=== PATIENT | female | born 1980 | race Hispanic/Latino ===

== ENCOUNTER 2017-02-19 10:10 | Emergency (ER) | payer SELFPAY ==
[2017-02-19 10:40] LABS: Bilirubin Negative (Negative); Blood, Urine Trace (Negative); Glucose, Urine (Dipstick) >=1000 mg/dL (Negative); Ketone, Urine Negative (Negative); Nitrite Negative (Negative); Protein, Urine (Dipstick) Negative (Neg-Trace); Urobilinogen 0.2 mg/dL (0.2-1.0)
[2017-02-19 10:42] LABS: Bacteria/HPF Rare-Few HPF (None Seen); Hyaline Casts/LPF 0-3 HYALINE CAST LPF (0-3 Hyaline); RBC/HPF 0-3 HPF (0-3); Squamous Epithelial 0-3 HPF (0-3); WBC/HPF 0-3 HPF (0-3)
[2017-02-19] MEDS ORDERED: Ondansetron HCl/PF 4 MG/2 ML Vial ONE (11:48)
[2017-02-19 11:58] LABS: #Basophils 0.1 thou/uL (0.0-0.2); #Eosinphils 0.1 thou/uL (0.0-0.7); #Lymphocytes 1.3 thou/uL (1.20-3.40); #Monocytes 0.5 thou/uL (0.11-0.59); #Neutrophils 3.9 thou/uL (1.40-6.50); %Basophils 1.2 % (0.0-1.0); %Eosinophils 1.8 % (0.0-10.0); %Lymphocytes 22.4 % (21.0-51.0); %Monocytes 8.8 % (0.0-10.0); Hematocrit 33.1 % (36.0-47.0); Mean Platelet Volume 7.8 fL (7.4-10.4); Red Blood Cell (RBC) Count 3.92 mill/uL (4.20-5.40); White Blood Cell (WBC) Count 5.9 thou/uL (4.8-10.8)
[2017-02-19] MEDS ORDERED: Ketorolac Tromethamine 30 MG/ML VIAL ONE (12:00)
[2017-02-19] MEDS ORDERED: Methocarbamol 1 GM in Sodium Chloride 0.9% 250 ML 250 ML IVPB SCH (12:15)
[2017-02-19 12:18] LABS: ALT (SGPT) 11 U/L (8-55); AST (SGOT) 12 U/L (5-34); Alkaline Phosphatase 63 U/L (40-150); Anion Gap 12 mmol/L (10-20); BUN (Urea Nitrogen) 13 mg/dL (7.0-18.7); Bilirubin, Total 0.3 mg/dL (0.2-1.2); Calc. Creatinine Clearance 0 mL/min (70-130); Calcium 9.8 mg/dL (7.8-10.44); Carbon Dioxide 25 mmol/L (22-29); Chloride 100 mmol/L (98-107); Estimated GFR-MDRD 69; Globulin 4.4 g/dL (2.4-3.5); Protein, Total 8.4 g/dL (6.0-8.3)
--- NOTE | 2017-02-19 13:27 | CT ---
CT STONE PROTOCOL: Date: 02/19/17 HISTORY: 37-year-old female with right flank pain. FINDINGS: Absence of oral and IV contrast reduces the sensitivity of exam, particularly for evaluation of racquel d organs and bowel. Mild dependent changes are seen in the lung bases. No free air or free fluid is seen in the abdomen or pelvis. No calcified gallstones are noted. A few punctate calculi are noted in the kidneys. No ca lculi seen in the ureters or the urinary bladder. No hydroureteronephrosis is noted. There is fecal material in the colon. There are vascular calcifications without evidence of aneurysmal dilatation o f the abdominal aorta. There are degenerative changes in the spine. IMPRESSION: Nonobstructing punctate renal calculi. POS: VEE
[2017-02-19] MEDS ORDERED: Insulin Regular 300 UNITS/3 ML VIAL ONE (13:40)
== END 2017-02-19 14:45 | disposition home or self-care (01) ==
LOC: ERS 10:10
DX: E11.65 Type 2 diabetes mellitus with hyperglycemia (principal); R10.9 Unspecified abdominal pain; F17.210 Nicotine dependence, cigarettes, uncomplicated
CPT/HCPCS: 36416; 74176; 80053; 81003; 81015; 81025; 85025; 96361; 96365; 96372; 96375; J1815; J1885; J2405; J2800; J7050

== ENCOUNTER 2019-01-10 08:50 | Outpatient (CLI) | payer MEDICAID ==
--- NOTE | 2019-01-10 09:36 | MMO ---
Bilateral MAMMO Bilat Screen [facility]DI. CLINICAL HISTORY: Patient is 38 years old and is seen for screening. The patient has the following family history of breast cancer: mother, at age 58, malignant (generic). The patient has no personal history of cancer. VIEWS: The views performed were: bilateral craniocaudal and bilateral mediolateral oblique. This study has been interpreted with the assistance of computer-aided detection. MAMMOGRAM FINDINGS: There are scattered fibroglandular densities. There are vascular calcifications seen in both breasts. There are no suspicious masses, suspicious calcifications, or new areas of architectural distortion. IMPRESSION: THERE IS NO MAMMOGRAPHIC EVIDENCE OF MALIGNANCY. A ROUTINE FOLLOW-UP MAMMOGRAM IN 1 YEAR IS RECOMMENDED. ACR BI-RADS Category 2 - Benign finding MAMMOGRAPHY NOTE: 1. A negative mammogram report should not delay a biopsy if a dominant of clinically suspicious mass is present. 2. Approximately 10% to 15% of breast cancers are not detected by mammography. 3. Adenosis and dense breasts may obscure an underlying neoplasm. Reported by: KASHMIR HELMS MD Electonically Signed: [id number]
== END 2019-01-10 08:51 | disposition home or self-care (01) ==
LOC: BICMAMMO 08:50
PROVIDERS: ATTEND Family Medicine
DX: Z12.31 Encounter for screening mammogram for malignant neoplasm of breast (principal); Z80.3 Family history of malignant neoplasm of breast
CPT/HCPCS: 77067

== ENCOUNTER 2020-04-01 08:37 | Outpatient (CLI) | payer MEDICAID ==
--- NOTE | 2020-04-01 09:17 | MMO ---
Bilateral MAMMO Bilat Screen [facility]DI. CLINICAL HISTORY: Patient is 40 years old and is seen for screening. The patient has the following family history of breast cancer: mother, at age 58, malignant (generic). The patient has no personal history of cancer. VIEWS: The views performed were: bilateral craniocaudal and bilateral mediolateral oblique. FILMS COMPARED: The present examination has been compared to a prior imaging study performed at [facility] on 01/10/2019. This study has been interpreted with the assistance of computer-aided detection. MAMMOGRAM FINDINGS: There are scattered fibroglandular densities. There are benign appearing calcifications seen in both breasts. There are no suspicious masses, suspicious calcifications, or new areas of architectural distortion. IMPRESSION: THERE IS NO MAMMOGRAPHIC EVIDENCE OF MALIGNANCY. A ROUTINE FOLLOW-UP MAMMOGRAM IN 1 YEAR IS RECOMMENDED. ACR BI-RADS Category 2 - Benign finding MAMMOGRAPHY NOTE: 1. A negative mammogram report should not delay a biopsy if a dominant of clinically suspicious mass is present. 2. Approximately 10% to 15% of breast cancers are not detected by mammography. 3. Adenosis and dense breasts may obscure an underlying neoplasm. Reported by: JORDY MCGOWAN MD Electonically Signed: [id number]
== END 2020-04-01 08:38 | disposition home or self-care (01) ==
LOC: BICMAMMO 08:37
PROVIDERS: ATTEND Family Medicine
DX: Z12.31 Encounter for screening mammogram for malignant neoplasm of breast (principal); Z80.3 Family history of malignant neoplasm of breast
CPT/HCPCS: 77067

== ENCOUNTER 2021-01-13 08:25 | Outpatient (CLI) | payer OTHER ==
[2021-01-13 21:08] LABS: SARS-CoV-2 PCR by NAA Not Detected (NotDetected)
== END 2021-01-13 08:26 | disposition home or self-care (01) ==
LOC: LABBT 08:25
PROVIDERS: ATTEND Ophthalmology Retina Specialist
DX: Z01.812 Encounter for preprocedural laboratory examination (principal); H43.11 Vitreous hemorrhage, right eye; Z20.822 Contact with and (suspected) exposure to COVID-19
CPT/HCPCS: U0003; U0005

== ENCOUNTER 2021-01-16 10:25 | Day surgery (SDC) | payer OTHER ==
[2021-01-15 16:08] VITALS: BMI 27.4
[~2021-01-16 10:25] MED LIST: Cyclopentolate 1% Opth Drop 2 ML BOT FS SCH; EPINEPHrine 0.3 MG, Dextrose 50% 3 ML in Ophthalmic Irrigation Solution 500 ML FS SCH; Fentanyl 100 MCG/2 ML VIAL ONE; Midazolam HCl 2 mg/2 ml Vial ONE; Phenylephrine 2.5% Ophth Soln 5 ML BOT FS SCH
[2021-01-16] MEDS ORDERED: Phenylephrine 2.5% Ophth Soln 5 ML BOT ONE (10:44)
[2021-01-16] MEDS ORDERED: Cyclopentolate 1% Opth Drop 2 ML BOT ONE (10:44)
[2021-01-16] MEDS ORDERED: Maxitrol 0.1% Opth Oint 3.5 GM TUBE ONE (11:12)
[2021-01-16] MEDS ORDERED: Bupivacaine PF 0.75% SDV 10 ML ONE (11:12)
[2021-01-16] MEDS ORDERED: CEFAZOLIN 1 GM VIAL ONE (11:12)
[2021-01-16] MEDS ORDERED: Triamcinolone 40 MG/ML VIAL ONE (11:12)
[2021-01-16] MEDS ORDERED: Lidocaine 4% PF 5 ML AMP ONE (11:12)
[2021-01-16] MEDS ORDERED: Dextrose 50% Abboject 50 ML SYRINGE ONE (11:12)
[2021-01-16] MEDS ORDERED: Lidocaine 1% PF 5 ML VIAL ONE (11:12)
[2021-01-16] MEDS ORDERED: PROPOFOL 200 MG/20 ML VIAL ONE (11:12)
== END 2021-01-16 13:15 | disposition home or self-care (01) ==
LOC: SDC 10:25
PROVIDERS: ATTEND Ophthalmology Retina Specialist
PROC: 08QE3ZZ Repair Right Retina, Percutaneous Approach (ICD-10-PCS; principal; 2021-01-16)
PROC: 08T43ZZ Resection of Right Vitreous, Percutaneous Approach (ICD-10-PCS; principal; 2021-01-16)
DX: H43.11 Vitreous hemorrhage, right eye (principal); E11.9 Type 2 diabetes mellitus without complications; Z79.84 Long term (current) use of oral hypoglycemic drugs; Z79.899 Other long term (current) drug therapy
CPT/HCPCS: J0171; J0690; J2250; J2704; J3010; J3301; J3490

== ENCOUNTER 2021-02-17 08:20 | Outpatient (CLI) | payer OTHER ==
[2021-02-18 00:58] LABS: SARS-CoV-2 PCR by NAA Not Detected (NotDetected)
== END 2021-02-17 08:21 | disposition home or self-care (01) ==
LOC: LABBT 08:20
PROVIDERS: ATTEND Ophthalmology Retina Specialist
DX: Z01.812 Encounter for preprocedural laboratory examination (principal); H43.12 Vitreous hemorrhage, left eye; Z20.822 Contact with and (suspected) exposure to COVID-19
CPT/HCPCS: U0003; U0005

== ENCOUNTER 2021-02-20 08:11 | Day surgery (SDC) | payer OTHER ==
[2021-02-19 12:02] VITALS: BMI 27.4
[~2021-02-20 08:11] MED LIST changes: -Cyclopentolate 1% Opth Drop 2 ML BOT FS SCH; -EPINEPHrine 0.3 MG, Dextrose 50% 3 ML in Ophthalmic Irrigation Solution 500 ML FS SCH; +EPINEPHrine 0.3 MG, Dextrose 50% 3 ML in Ophthalmic Irrigation Solution 500 ML IRR SCH; -Phenylephrine 2.5% Ophth Soln 5 ML BOT FS SCH
[2021-02-20] MEDS ORDERED: Phenylephrine 2.5% Ophth Soln 5 ML BOT ONE (08:15)
[2021-02-20] MEDS ORDERED: Cyclopentolate 1% Opth Drop 2 ML BOT ONE (08:16)
[2021-02-20] MEDS ORDERED: Bupivacaine PF 0.75% SDV 10 ML ONE (08:55)
[2021-02-20] MEDS ORDERED: PROPOFOL 200 MG/20 ML VIAL ONE (08:55)
[2021-02-20] MEDS ORDERED: Lidocaine 4% PF 5 ML AMP ONE (08:55)
[2021-02-20] MEDS ORDERED: Dextrose 50% Abboject 50 ML SYRINGE ONE (08:55)
[2021-02-20] MEDS ORDERED: CEFAZOLIN 1 GM VIAL ONE (08:55)
[2021-02-20] MEDS ORDERED: Lidocaine 1% PF 5 ML VIAL ONE (08:55)
[2021-02-20] MEDS ORDERED: Maxitrol 0.1% Opth Oint 3.5 GM TUBE ONE (08:55)
[2021-02-20] MEDS ORDERED: Triamcinolone 40 MG/ML VIAL ONE (08:55)
== END 2021-02-20 10:15 | disposition home or self-care (01) ==
LOC: SDC 08:11
PROVIDERS: ATTEND Ophthalmology Retina Specialist
PROC: 08T53ZZ Resection of Left Vitreous, Percutaneous Approach (ICD-10-PCS; principal; 2021-02-20)
DX: H33.42 Traction detachment of retina, left eye (principal); H43.12 Vitreous hemorrhage, left eye; Z79.84 Long term (current) use of oral hypoglycemic drugs; Z79.899 Other long term (current) drug therapy
CPT/HCPCS: J0171; J0690; J2250; J2704; J3010; J3301; J3490

== ENCOUNTER 2021-04-03 08:43 | Outpatient (CLI) | payer OTHER | END 2021-04-03 08:44 | disposition home or self-care (01) | LOC: BICMAMMO 08:43 | PROVIDERS: ATTEND Family Medicine | DX: Z12.31 Encounter for screening mammogram for malignant neoplasm of breast (principal); N63.10 Unspecified lump in the right breast, unspecified quadrant; Z80.3 Family history of malignant neoplasm of breast | CPT/HCPCS: 77067 ==

== ENCOUNTER 2021-04-08 08:41 | Outpatient (CLI) | payer OTHER | END 2021-04-08 08:42 | disposition home or self-care (01) | LOC: BICMAMMO 08:41 | PROVIDERS: ATTEND Family Medicine | DX: N63.11 Unspecified lump in the right breast, upper outer quadrant (principal) | CPT/HCPCS: G0279 ==

== ENCOUNTER 2021-05-05 07:54 | Outpatient (CLI) | payer OTHER ==
[2021-05-05 19:53] LABS: SARS-CoV-2 PCR by NAA Not Detected (NotDetected)
== END 2021-05-05 07:55 | disposition home or self-care (01) ==
LOC: LABBT 07:54
PROVIDERS: ATTEND Ophthalmology Retina Specialist
DX: Z01.812 Encounter for preprocedural laboratory examination (principal); H43.12 Vitreous hemorrhage, left eye; H54.7 Unspecified visual loss; Z20.822 Contact with and (suspected) exposure to COVID-19
CPT/HCPCS: U0003; U0005

== ENCOUNTER 2021-05-19 08:28 | Outpatient (CLI) | payer OTHER ==
[2021-05-19 21:40] LABS: SARS-CoV-2 PCR by NAA Not Detected (NotDetected)
== END 2021-05-19 08:29 | disposition home or self-care (01) ==
LOC: LABBT 08:28
PROVIDERS: ATTEND Ophthalmology Retina Specialist
DX: Z01.812 Encounter for preprocedural laboratory examination (principal); H43.12 Vitreous hemorrhage, left eye; H54.7 Unspecified visual loss; Z20.822 Contact with and (suspected) exposure to COVID-19
CPT/HCPCS: U0003; U0005

== ENCOUNTER 2021-05-22 06:30 | Day surgery (SDC) | payer OTHER ==
[2021-05-21 08:42] VITALS: BMI 27.4
[~2021-05-22 06:30] MED LIST changes: +EPINEPHrine 0.3 MG in Ophthalmic Irrigation Solution 500 ML IRR SCH; -EPINEPHrine 0.3 MG, Dextrose 50% 3 ML in Ophthalmic Irrigation Solution 500 ML IRR SCH; -Fentanyl 100 MCG/2 ML VIAL ONE; +Fluorouracil 100 MG, Enoxaparin Sodium 25 MG, EPINEPHrine 0.3 MG in Ophthalmic Irrigati... IRR SCH; -Midazolam HCl 2 mg/2 ml Vial ONE
[2021-05-22] MEDS ORDERED: Fentanyl 100 MCG/2 ML VIAL ONE (06:37)
[2021-05-22] MEDS ORDERED: Midazolam HCl 2 mg/2 ml Vial ONE (06:37)
[2021-05-22] MEDS ORDERED: Phenylephrine 2.5% Ophth Soln 5 ML BOT ONE (06:45)
[2021-05-22] MEDS ORDERED: Cyclopentolate 1% Opth Drop 2 ML BOT ONE (06:45)
[2021-05-22] MEDS ORDERED: Bupivacaine PF 0.75% SDV 10 ML ONE (08:14)
[2021-05-22] MEDS ORDERED: Lidocaine 1% PF 5 ML VIAL ONE (08:14)
[2021-05-22] MEDS ORDERED: CEFAZOLIN 1 GM VIAL ONE (08:14)
[2021-05-22] MEDS ORDERED: PROPOFOL 200 MG/20 ML VIAL ONE (08:14)
[2021-05-22] MEDS ORDERED: Maxitrol 0.1% Opth Oint 3.5 GM TUBE ONE (08:14)
[2021-05-22] MEDS ORDERED: Lidocaine 4% PF 5 ML AMP ONE (08:14)
[2021-05-22] MEDS ORDERED: Triamcinolone 40 MG/ML VIAL ONE (08:14)
[2021-05-22] MEDS ORDERED: EPINEPHrine 1 MG/ML AMP ONE (08:37)
== END 2021-05-22 10:05 | disposition home or self-care (01) ==
LOC: SDC 06:30
PROVIDERS: ATTEND Ophthalmology Retina Specialist
PROC: 08T53ZZ Resection of Left Vitreous, Percutaneous Approach (ICD-10-PCS; principal; 2021-05-22)
PROC: 08QF3ZZ Repair Left Retina, Percutaneous Approach (ICD-10-PCS; principal; 2021-05-22)
PROC: 08NF3ZZ Release Left Retina, Percutaneous Approach (ICD-10-PCS; principal; 2021-05-22)
DX: H33.42 Traction detachment of retina, left eye (principal); H43.12 Vitreous hemorrhage, left eye; E11.9 Type 2 diabetes mellitus without complications; Z79.84 Long term (current) use of oral hypoglycemic drugs; Z79.899 Other long term (current) drug therapy
CPT/HCPCS: 67025; J0171; J0690; J1650; J2250; J2704; J3010; J3301; J3490; J9190

== ENCOUNTER 2022-01-14 09:50 | Emergency (ER) | payer OTHER | END 2022-01-14 10:55 | disposition left against medical advice (07) | LOC: ERS 09:50 | DX: Z53.21 Procedure and treatment not carried out due to patient leaving prior to being seen by health care provider (principal) ==

== ENCOUNTER 2022-02-10 12:38 | Outpatient (CLI) | payer OTHER | END 2022-02-10 12:39 | disposition home or self-care (01) | LOC: BICULT 12:38 | PROVIDERS: ATTEND Internal Medicine Nephrology | DX: R80.9 Proteinuria, unspecified (principal) | CPT/HCPCS: 76770 ==

== ENCOUNTER 2022-04-22 10:55 | Outpatient (CLI) | payer OTHER | END 2022-04-22 10:56 | disposition home or self-care (01) | LOC: BICMAMMO 10:55 | PROVIDERS: ATTEND Family Medicine | DX: Z12.31 Encounter for screening mammogram for malignant neoplasm of breast (principal); Z80.3 Family history of malignant neoplasm of breast | CPT/HCPCS: 77067 ==

== ENCOUNTER 2022-05-06 09:08 | Outpatient (CLI) | payer OTHER | END 2022-05-06 09:09 | disposition home or self-care (01) | LOC: BICULT 09:08 | PROVIDERS: ATTEND Family Medicine | DX: R92.8 Other abnormal and inconclusive findings on diagnostic imaging of breast (principal) | CPT/HCPCS: G0279 ==

== ENCOUNTER 2023-04-23 08:54 | Outpatient (CLI) | payer OTHER | END 2023-04-23 08:55 | disposition home or self-care (01) | LOC: BICMAMMO 08:54 | PROVIDERS: ATTEND Family Medicine | DX: Z12.31 Encounter for screening mammogram for malignant neoplasm of breast (principal); Z80.3 Family history of malignant neoplasm of breast | CPT/HCPCS: 77067 ==

== ENCOUNTER 2024-05-17 08:39 | Outpatient (CLI) | payer OTHER | END 2024-05-17 08:40 | disposition home or self-care (01) | LOC: BICMAMMO 08:39 | PROVIDERS: ATTEND Nurse Practitioner Family | DX: Z12.31 Encounter for screening mammogram for malignant neoplasm of breast (principal); Z80.3 Family history of malignant neoplasm of breast | CPT/HCPCS: 77067 ==

== ENCOUNTER 2025-01-16 09:04 | Outpatient (CLI) | payer MEDICAID | END 2025-01-16 09:05 | disposition home or self-care (01) | LOC: ULT 09:04 | PROVIDERS: ATTEND Family Medicine | DX: N92.0 Excessive and frequent menstruation with regular cycle (principal); N83.201 Unspecified ovarian cyst, right side | CPT/HCPCS: 76856 ==